=== PATIENT | male | born 1980 | race African-American/Black ===

== ENCOUNTER 2019-09-16 17:55 | Emergency (ER) | payer MEDICARE, MEDICAID ==
[~2019-09-16] VITALS: Ht 170.2 cm; Wt 63.0 kg
[2019-09-16 18:01] VITALS: BP 157/100
[2019-09-16] MEDS ORDERED: ONDANSETRON HCL 4MG/2ML INJ IV ONE (18:30)
[2019-09-16] MEDS ORDERED: IBUPROFEN 800MG TABLET PO ONE (18:30)
[2019-09-16] MEDS ORDERED: ETOMIDATE 2MG/ML 10ML VIAL IV ONE (18:30)
== END 2019-09-16 19:05 | disposition left against medical advice (07) ==
LOC: ER 17:55
DX: M79.631 Pain in right forearm (principal); V43.52XA Car driver injured in collision with other type car in traffic accident, initial encounter; Y93.89 Activity, other specified; Y92.410 Unspecified street and highway as the place of occurrence of the external cause
CPT/HCPCS: 29105; 99283

== ENCOUNTER 2019-10-09 16:30 | Emergency (ER) | payer MEDICAID ==
[~2019-10-09] VITALS: Ht 188 cm; Wt 75.0 kg
[2019-10-09 16:36] VITALS: BP 153/94
== END 2019-10-09 18:22 | disposition left against medical advice (07) ==
LOC: ER 16:30
DX: Z53.21 Procedure and treatment not carried out due to patient leaving prior to being seen by health care provider (principal)

== ENCOUNTER 2023-07-09 16:22 | Emergency (ER) | payer MEDICAID ==
[~2023-07-09] VITALS: Ht 172.7 cm; Wt 80.0 kg
[2023-07-09 16:24] VITALS: O2SAT 99
[2023-07-09 17:41] VITALS: BP 129/92; PULSE 106; RESP 16; TEMP 98.4
== END 2023-07-09 17:43 | disposition home or self-care (01) ==
LOC: ER 16:22
DX: R07.89 Other chest pain (principal)
CPT/HCPCS: 99283

== ENCOUNTER 2023-07-09 22:46 | Emergency (ER) | payer MEDICAID ==
[~2023-07-09] VITALS: Ht 182.9 cm; Wt 75.0 kg
[2023-07-09 23:15] VITALS: O2SAT 100
[2023-07-10 00:06] LABS: BASOPHILS % 0.5 % (0.0-2.0); EOSINOPHILS % 3.1 % (0.0-5.0); HEMATOCRIT. 42.1 % (42.0-52.0); HEMOGLOBIN. 14.4 g/dL (14.0-18.0); LYMPHOCYTES % 25.9 % (20.0-50.0); MEAN CORPUSCULAR HEMOGLOBIN 33.5 pg (28.0-32.0); MEAN CORPUSCULAR HGB CONC 34.3 g/dL (31.0-37.0); MEAN CORPUSCULAR VOLUME 97.7 fL (80.0-94.0); MONOCYTES % 7.8 % (2.0-8.0); NEUTROPHILS % 62.7 % (40.0-76.0); PLATELET 434 x1000/uL (130-400); RED BLOOD CELL COUNT 4.31 mill/uL (4.7-6.1); RED CELL DISTRIBUTION WIDTH 13.9 % (11.6-14.6); WHITE BLOOD COUNT 5.7 x1000/uL (4.5-11.0)
[2023-07-10 00:13] LABS: PROTHROMBIN TIME 10.3 sec (9.6-11.0)
[2023-07-10 00:15] LABS: ALANINE AMINOTRANSFERASE 18 IU/L (10-49); ALBUMIN 4.8 g/dL (3.2-4.8); ASPARTATE AMINOTRANSFERASE 22 IU/L (<34); BILIRUBIN TOTAL 0.7 mg/dL (0.1-1.0); CARBON DIOXIDE 28 mEq/L (21-32); CHLORIDE 103 mEq/L (98-107); CREATININE 0.9 mg/dL (0.6-1.3); GLUCOSE 91 mg/dL (70-105); POTASSIUM 3.6 mEq/L (3.5-5.1); PROTEIN TOTAL 7.3 g/dL (6.0-8.3); SODIUM 139 mEq/L (136-145); UREA NITROGEN BLOOD 7 mg/dL (9-23)
[2023-07-10 00:55] LABS: TROPONIN I HIGH SENSITIVITY < 4 ng/L (3.0-53)
[2023-07-10] MEDS ORDERED: OLANZAPINE 5MG TABLET ODT PO NR (10:09)
[2023-07-10] MEDS ORDERED: LORAZEPAM 1MG TABLET PO NR (10:10)
[2023-07-10 11:16] VITALS: BP 136/84; PULSE 80; RESP 16; TEMP 98.6
== END 2023-07-10 12:29 | disposition home or self-care (01) ==
LOC: ER 22:46
DX: F29 Unspecified psychosis not due to a substance or known physiological condition (principal); R07.89 Other chest pain
CPT/HCPCS: 36415; 71045; 80053; 84484; 85025; 93005; 99285

== ENCOUNTER 2023-11-16 00:45 | Inpatient (IN) | payer MEDICAID ==
[~2023-11-16] VITALS: Ht 182.9 cm; Wt 75.7 kg
[2023-11-16 02:32] LABS: BASOPHILS % 1.3 % (0.0-2.0); EOSINOPHILS % 3.5 % (0.0-5.0); HEMATOCRIT. 43.4 % (42.0-52.0); HEMOGLOBIN. 15.1 g/dL (14.0-18.0); LYMPHOCYTES % 34.9 % (20.0-50.0); MEAN CORPUSCULAR HEMOGLOBIN 33.8 pg (28.0-32.0); MEAN CORPUSCULAR HGB CONC 34.8 g/dL (31.0-37.0); MEAN PLATELET VOLUME 6.8 fl (7.4-10.4); MONOCYTES % 7.8 % (2.0-8.0); NEUTROPHILS % 52.5 % (40.0-76.0); PLATELET 345 x1000/uL (130-400); RED BLOOD CELL COUNT 4.47 mill/uL (4.7-6.1); RED CELL DISTRIBUTION WIDTH 13.6 % (11.6-14.6); WHITE BLOOD COUNT 6.2 x1000/uL (4.5-11.0)
[2023-11-16] MEDS: ONDANSETRON HCL 4MG/2ML INJ IV STA (02:47)
[2023-11-16] MEDS: MORPHINE SULFATE 4 MG/ML INJ (FOR IV/IM USE) IV STA (02:48)
[2023-11-16] MEDS: NITROGLYCERIN 0.4MG TABLET SL SL PRN (02:48)
[2023-11-16 02:53] LABS: ALANINE AMINOTRANSFERASE 15 IU/L (10-49); ALBUMIN 5.2 g/dL (3.2-4.8); ASPARTATE AMINOTRANSFERASE 21 IU/L (<34); BILIRUBIN TOTAL 0.3 mg/dL (0.1-1.0); CALCIUM 9.5 mg/dL (8.7-10.4); CARBON DIOXIDE 28 mEq/L (21-32); CHLORIDE 104 mEq/L (98-107); CREATININE 1.2 mg/dL (0.6-1.3); GLUCOSE 93 mg/dL (70-105); PROTEIN TOTAL 8.4 g/dL (6.0-8.3); SODIUM 138 mEq/L (136-145); UREA NITROGEN BLOOD 16 mg/dL (9-23)
[2023-11-16 03:27] LABS: TROPONIN I HIGH SENSITIVITY < 4 ng/L (3.0-53)
[2023-11-16] MEDS ORDERED: CLONIDINE 0.1MG TABLET PO PRN (04:00)
[2023-11-16] MEDS ORDERED: IPRATROPIUM/ALBUTEROL 0.5-3(2.5)MG/3ML NEB HHN PRN (04:00)
[2023-11-16] MEDS ORDERED: MAGNESIUM/ALUMINUM HYDROXIDE/SIMETHICONE 30ML UDC PO PRN (04:00)
[2023-11-16] MEDS ORDERED: NITROGLYCERIN 0.4MG TABLET SL SL PRN (04:00)
[2023-11-16 05:05] LABS: BASOPHILS % 1.1 % (0.0-2.0); EOSINOPHILS % 4.8 % (0.0-5.0); HEMATOCRIT. 39.3 % (42.0-52.0); HEMOGLOBIN. 13.6 g/dL (14.0-18.0); LYMPHOCYTES % 41.2 % (20.0-50.0); MEAN CORPUSCULAR HEMOGLOBIN 33.8 pg (28.0-32.0); MEAN CORPUSCULAR HGB CONC 34.6 g/dL (31.0-37.0); MEAN CORPUSCULAR VOLUME 97.7 fL (80.0-94.0); MEAN PLATELET VOLUME 6.8 fl (7.4-10.4); MONOCYTES % 7.8 % (2.0-8.0); NEUTROPHILS % 45.1 % (40.0-76.0); PLATELET 340 x1000/uL (130-400); RED BLOOD CELL COUNT 4.02 mill/uL (4.7-6.1); RED CELL DISTRIBUTION WIDTH 13.5 % (11.6-14.6); WHITE BLOOD COUNT 5.8 x1000/uL (4.5-11.0)
[2023-11-16 05:25] LABS: ALANINE AMINOTRANSFERASE 13 IU/L (10-49); ALBUMIN 4.6 g/dL (3.2-4.8); ASPARTATE AMINOTRANSFERASE 18 IU/L (<34); BILIRUBIN TOTAL 0.4 mg/dL (0.1-1.0); CARBON DIOXIDE 29 mEq/L (21-32); CHLORIDE 105 mEq/L (98-107); CHOLESTEROL 136 mg/dL (<200); CREATININE 1.1 mg/dL (0.6-1.3); GLUCOSE 85 mg/dL (70-105); HDL CHOLESTEROL 51 mg/dL (>55); LDL CHOLESTEROL 70 mg/dL (5-100); POTASSIUM 3.7 mEq/L (3.5-5.1); PROTEIN TOTAL 7.5 g/dL (6.0-8.3); SODIUM 137 mEq/L (136-145); THYROID STIMULATING HORMONE 1.65 uIU/mL (0.55-4.78); TRIGLYCERIDE 82 mg/dL (0-150); UREA NITROGEN BLOOD 14 mg/dL (9-23)
[2023-11-16 05:33] LABS: TROPONIN I HIGH SENSITIVITY < 4 ng/L (3.0-53)
[2023-11-16 08:28] LABS: TROPONIN I HIGH SENSITIVITY < 4 ng/L (3.0-53)
[2023-11-16] MEDS: ENOXAPARIN 40MG/0.4ML SYR SUBCUT SCH (09:00)
[2023-11-16] MEDS: PANTOPRAZOLE SODIUM 40 MG/VIAL IV SCH (10:03)
[2023-11-16] MEDS ORDERED: METOPROLOL TARTRATE 5MG/5ML VIAL IV PRN (15:45)
[2023-11-16] MEDS: SODIUM CHLORIDE 0.45% 1,000 ML IV SCH (16:49)
[2023-11-16 21:38] LABS: TROPONIN I HIGH SENSITIVITY < 4 ng/L (3.0-53)
[2023-11-16 22:00] VITALS: BP 101/55; PULSE 67; RESP 16; TEMP 97.6
[2023-11-17] MEDS ORDERED: ERGO1250 PO (03:06)
[2023-11-17] MEDS ORDERED: ACET325T52 PO (03:06)
[2023-11-17] MEDS ORDERED: IBUP-2030 PO (03:06)
[2023-11-17] MEDS ORDERED: FAMO20TA8 PO (03:06)
[2023-11-17] MEDS ORDERED: OLAN10TA72 PO (03:06)
[2023-11-17] MEDS ORDERED: DOCU-150 PO (03:06)
[2023-11-17] MEDS: ACETAMINOPHEN 325MG TABLET PO PRN (07:18)
[2023-11-17 07:26] LABS: BASOPHILS % 0.4 % (0.0-2.0); EOSINOPHILS % 6.7 % (0.0-5.0); HEMATOCRIT. 40.3 % (42.0-52.0); LYMPHOCYTES % 53.7 % (20.0-50.0); MEAN CORPUSCULAR HEMOGLOBIN 34.3 pg (28.0-32.0); MEAN CORPUSCULAR HGB CONC 34.7 g/dL (31.0-37.0); MEAN PLATELET VOLUME 7.2 fl (7.4-10.4); MONOCYTES % 7.3 % (2.0-8.0); NEUTROPHILS % 31.9 % (40.0-76.0); PLATELET 324 x1000/uL (130-400); RED BLOOD CELL COUNT 4.07 mill/uL (4.7-6.1); RED CELL DISTRIBUTION WIDTH 13.1 % (11.6-14.6); WHITE BLOOD COUNT 4.5 x1000/uL (4.5-11.0)
[2023-11-17 07:50] LABS: CALCIUM 8.6 mg/dL (8.7-10.4); CARBON DIOXIDE 25 mEq/L (21-32); CHLORIDE 107 mEq/L (98-107); CREATININE 0.9 mg/dL (0.6-1.3); GLUCOSE 85 mg/dL (70-105); PHOSPHORUS 4.2 mg/dL (2.5-4.9); POTASSIUM 3.7 mEq/L (3.5-5.1); SODIUM 139 mEq/L (136-145); UREA NITROGEN BLOOD 9 mg/dL (9-23)
[2023-11-17 08:00] VITALS: BP 109/70; PULSE 74; RESP 20; TEMP 98
[2023-11-17 11:53] LABS: CLARITY URINE CLEAR (CLEAR); COLOR URINE YELLOW (YELLOW); GLUCOSE URINE NEGATIVE (NEGATIVE); KETONES URINE NEGATIVE (NEGATIVE); LEUKOCYTE ESTERASE URINE 1+ (NEGATIVE); NITRITE URINE NEGATIVE (NEGATIVE); OCCULT BLOOD URINE NEGATIVE (NEGATIVE); PH URINE 6.5 (4.5-8.0); PROTEIN URINE NEGATIVE (NEGATIVE); SPECIFIC GRAVITY URINE 1.014 (1.005-1.030); UROBILINOGEN URINE 0.2 E.U./dL (0.2-1.0)
[2023-11-17 12:00] VITALS: BP 115/76; PULSE 74; RESP 18; TEMP 98
[2023-11-17 12:54] LABS: BACTERIA URINE NONE SEEN; RBC URINE NONE SEEN /hpf (0-2); SQUAMOUS EPITHELIAL CELL URINE RARE /lpf (RARE/1+); WBC URINE 0-2 /hpf (0-2)
[2023-11-17 13:31] LABS: *AMPHETAMINES SCREEN URINE PRESUMPTIVE POSITIVE (NEGATIVE); *BARBITURATES SCREEN URINE NEGATIVE (NEGATIVE); *BENZODIAZEPINES SCREEN URINE NEGATIVE (NEGATIVE); *COCAINE SCREEN URINE NEGATIVE (NEGATIVE); CANNABINOID URINE SCREEN NEGATIVE (NEGATIVE); ECSTASY MDMA SCREEN URINE NEGATIVE (NEGATIVE); METHADONE URINE SCREEN Neg (NEGATIVE); OPIATES URINE SCREEN PRESUMPTIVE POSITIVE (NEGATIVE); PHENCYCLIDINE URINE SCREEN PRESUMTIVE POSITIVE (NEGATIVE)
[2023-11-17 16:00] VITALS: BP 101/55; PULSE 60; RESP 20; TEMP 97.8
[2023-11-17 20:39] VITALS: BP 106/72; PULSE 58; RESP 16; TEMP 97.5
[2023-11-18 00:20] VITALS: BP 93/55; PULSE 60; RESP 16; TEMP 97.8
[2023-11-18] MEDS: MELATONIN 3MG TABLET PO SCH (02:10)
[2023-11-18 04:00] VITALS: BP 99/55; PULSE 50; RESP 20; TEMP 97.3
[2023-11-18 05:59] LABS: BASOPHILS % 0.7 % (0.0-2.0); EOSINOPHILS % 5.2 % (0.0-5.0); HEMATOCRIT. 42.4 % (42.0-52.0); HEMOGLOBIN. 14.3 g/dL (14.0-18.0); LYMPHOCYTES % 51.5 % (20.0-50.0); MEAN CORPUSCULAR HEMOGLOBIN 33.6 pg (28.0-32.0); MEAN CORPUSCULAR HGB CONC 33.7 g/dL (31.0-37.0); MEAN CORPUSCULAR VOLUME 99.7 fL (80.0-94.0); MEAN PLATELET VOLUME 7.1 fl (7.4-10.4); MONOCYTES % 6.2 % (2.0-8.0); NEUTROPHILS % 36.4 % (40.0-76.0); PLATELET 326 x1000/uL (130-400); RED BLOOD CELL COUNT 4.26 mill/uL (4.7-6.1); WHITE BLOOD COUNT 5.2 x1000/uL (4.5-11.0)
[2023-11-18 06:24] LABS: CALCIUM 8.6 mg/dL (8.7-10.4); CARBON DIOXIDE 25 mEq/L (21-32); CHLORIDE 108 mEq/L (98-107); CREATININE 0.9 mg/dL (0.6-1.3); GLUCOSE 85 mg/dL (70-105); POTASSIUM 3.7 mEq/L (3.5-5.1); SODIUM 140 mEq/L (136-145); UREA NITROGEN BLOOD 9 mg/dL (9-23)
[2023-11-18 07:57] VITALS: BP 110/66; PULSE 51; RESP 20; TEMP 98
[2023-11-18] MEDS ORDERED: IOHEXOL-350 100 ML BOTTLE ONE (10:26)
[2023-11-18 11:48] VITALS: BP 93/64; PULSE 62; RESP 19; TEMP 98.1
[2023-11-18 16:03] VITALS: BP 90/61; PULSE 54; RESP 20; TEMP 98.2
[2023-11-18 17:22] VITALS: BP 90/61; PULSE 54; TEMP 96.8; O2SAT 100
[2023-11-19] MEDS ORDERED: FAMOTIDINE 20MG/2ML VIAL IV SCH (09:00)
== END 2023-11-18 17:58 | disposition home or self-care (01) | DRG 812 ==
LOC: ER 01:00 → 7WST 22:02
PROVIDERS: ADMIT Preventive Medicine Clinical Informatics; ATTEND Preventive Medicine Clinical Informatics
DX: T43.621A Poisoning by amphetamines, accidental (unintentional), initial encounter (principal); F17.210 Nicotine dependence, cigarettes, uncomplicated; F19.10 Other psychoactive substance abuse, uncomplicated; R07.89 Other chest pain; T50.995A Adverse effect of other drugs, medicaments and biological substances, initial encounter; Y92.89 Other specified places as the place of occurrence of the external cause; Z79.899 Other long term (current) drug therapy; T40.601A Poisoning by unspecified narcotics, accidental (unintentional), initial encounter
CPT/HCPCS: 36415; 71045; 75571; 80048; 80053; 80061; 80305; 81003; 83735; 83880; 84100; 84439; 84443; 84484; 85025; 85379; 87015; 87045; 87427; 87449; 87493; 89055; 93005; 93306; 97162; 97166; 97535; 99285; C9113; J1650; J2270; J2405; Q9967